=== PATIENT | male | born 1940 | race Caucasian/White ===

== ENCOUNTER 2020-05-31 11:59 | Outpatient (CLI) | payer MEDICARE, BC ==
[2020-05-31] MEDS ORDERED: BACI/NEOM/POLY B OINT PKT 1 UDPKT PACKET ONE (12:28)
== END 2020-05-31 23:59 | disposition home or self-care (01) ==
LOC: WOU 11:59
PROVIDERS: ATTEND Surgery
DX: I97.621 Postprocedural hematoma of a circulatory system organ or structure following other procedure (principal); T81.31XA Disruption of external operation (surgical) wound, not elsewhere classified, initial encounter; Z95.0 Presence of cardiac pacemaker; I49.9 Cardiac arrhythmia, unspecified
CPT/HCPCS: G0463

== ENCOUNTER 2021-02-06 11:00 | Inpatient (IN) | payer MEDICARE, BC ==
[~2021-02-06] VITALS: Ht 158.8 cm; Wt 62.1 kg
[2021-02-06] VITALS (9 sets, daily range): BP systolic 98–129; BP diastolic 48–68
--- NOTE | 2021-02-06 11:05 | NUR ---
[id number] FRM HOME, SYNCOPAL EPISODE. HYPOTENSIVE UPON EMS ARRIVAL BG 173 CLINICAL TECHNOLOGIST. PATIENT A/OX4, BREATHING EVEN AND UNLABORED, NO SOB NOTED, NO INJURY NOTED AT THIS TIME. PATIENT IS C/O LOWER BACK PAIN.ASSISTED TO ER BED 9. PLACED ON THE ETIOLOGIST.
--- NOTE | 2021-02-06 11:11 | NUR ---
MOVE SHEET SUBMITTED AND CALLED FOR TELE BED.
--- NOTE | 2021-02-06 11:16 | NUR ---
IV LINE ESTABLISHED, BLOOD DRAWN AND SENT TO LAB.
--- NOTE | 2021-02-06 11:19 | NUR ---
[place], CALLED STATING THAT PT HAD A TRANSCATHETER AORTIC VALVE REPLACEMENT AROUND 3 YEARS AGO.
[2021-02-06 11:29] LABS: BASOPHILS % (AUTO) 0.3 % (0.0-2.0); EOSINOPHILS % (AUTO) 5.4 % (0.0-6.0); HEMATOCRIT 25 % (39-51); HEMOGLOBIN 7.9 g/dL (13.5-17.5); LYMPHOCYTES # (AUTO) 2.4 K/uL (0.8-4.8); LYMPHOCYTES % (AUTO) 36.9 % (20.0-44.0); MEAN CORPUSCULAR HGB CONC 31 g/dl (31.0-36.0); MEAN CORPUSCULAR VOLUME 74 fL (80-96); MONOCYTES # (AUTO) 0.6 K/uL (0.1-1.30); MONOCYTES % (AUTO) 8.9 % (2.0-12.0); NEUTROPHILS # (AUTO) 3.2 K/uL (1.8-8.9); NEUTROPHILS % (AUTO) 48.5 % (43.0-81.0); PLATELET COUNT (AUTO) 202 K/uL (150-450); RED BLOOD CELL COUNT(AUTO) 3.41 MIL/uL (4.5-6.0); WHITE BLOOD COUNT (AUTO) 6.5 K/uL (4.3-11.0)
[2021-02-06] MEDS ORDERED: IV NS 0.9% 1,000 ML BAG IV ONE (11:30)
[2021-02-06 11:44] LABS: ALANINE AMINOTRANSFERASE 12 U/L (12-78); ALBUMIN 3.4 g/dL (3.4-5.0); ALKALINE PHOSPHATASE 70 U/L (46-116); ASPARTATE AMINOTRANSFERASE 18 U/L (15-37); BILIRUBIN,DIRECT 0.2 mg/dL (0.0-0.2); BILIRUBIN,TOTAL 0.5 mg/dL (0.2-1.0); CALCIUM, SERUM 8.5 mg/dL (8.5-10.1); CREATININE 1.8 mg/dL (0.6-1.3); GLUCOSE 124 mg/dL (74-106); POTASSIUM 4.4 mmol/L (3.5-5.1); SODIUM SERUM 140 mmol/L (136-145); TOTAL PROTEIN, SERUM 6.5 g/dL (6.4-8.2); UREA NITROGEN, BLOOD 36 mg/dL (7-18)
[2021-02-06 11:48] LABS: CARBON DIOXIDE 21 mmol/L (21-32); CHLORIDE 109 mmol/L (98-107)
[2021-02-06] MEDS ORDERED: ASPIRIN 325 MG TABLET PO ONE (12:00)
[2021-02-06] MEDS ORDERED: TRIA1TAB3 PO (12:06)
[2021-02-06] MEDS ORDERED: PROP10TA68 PO (12:06)
[2021-02-06] MEDS ORDERED: PRAV40TA3 PO (12:06)
[2021-02-06] MEDS ORDERED: AMLO2.5T4 PO (12:06)
[2021-02-06] MEDS ORDERED: LATA2.5D15 EACHEYE (12:06)
[2021-02-06] MEDS ORDERED: TIMO5DRO18 EACHEYE (12:06)
[2021-02-06] MEDS ORDERED: VALS80TA31 PO (12:06)
[2021-02-06] MEDS ORDERED: FAMO40TA7 PO (12:06)
[2021-02-06] MEDS ORDERED: ALLO300T2 PO (12:06)
[2021-02-06] MEDS ORDERED: CYAN100096 PO (12:06)
--- NOTE | 2021-02-06 12:14 | NUR ---
PATIENT AWAKE AND ALERT, ORIENTED X4, NO CHANGE IN LOC, NEUROCHECK DONE. VERBALLY RESPONSIVE, ABLE TO MOVE ALL EXTREMITIES WITH NO DIFFICULTY.
--- NOTE | 2021-02-06 12:14 | NUR ---
IMAGES SENT TO DR. BYRD.
--- NOTE | 2021-02-06 12:32 | NUR ---
DR. BYRD SPEAKING WITH DR. FARR.
--- NOTE | 2021-02-06 12:35 | NUR ---
[facility] CALLED CLINIC CHARGE NURSE PAGED.
--- NOTE | 2021-02-06 14:00 | NUR ---
PATIENT RESTING, IN NO DISTRESS NOTED. NEEDS ATTENDED. VSS.
[2021-02-06] MEDS ORDERED: ONDANSETRON HCL/PF 4 MG/2 ML VIAL ONE (14:01)
[2021-02-06] MEDS ORDERED: MORPHINE SULFATE INJ 4 MG/ML DISP.SYRIN ONE (14:01)
--- NOTE | 2021-02-06 14:13 | NUR ---
GOT BED ASSIGNMENT ICU BED 258
--- NOTE | 2021-02-06 14:37 | NUR ---
PT ARRIVED IN ICU FROM ER AT THIS TIME VIA GURNEY. PT WALKED WITH ASSISTANCE TO BED. PT APPEARS TO BE ALERT OX4, NO DEFICITS NOTED.
--- NOTE | 2021-02-06 14:38 | NUR ---
PATIENT A/OX4, BREATHING EVEN AND UNLABORED, NO SOB NOTED. PATIENT TRANSFERRED TO ICU ROOM 258 IN STABLE CONDITION.
[2021-02-06] MEDS ORDERED: Z GUARD REMEDY 2 OZ OINT TP PRN (15:00)
[2021-02-06] MEDS ORDERED: ONDANSETRON HCL/PF 4 MG/2 ML VIAL IVP PRN (15:00)
[2021-02-06] MEDS ORDERED: ZOLPIDEM TARTRATE 5 MG TABLET PO PRN (15:00)
[2021-02-06] MEDS ORDERED: ACETAMINOPHEN 325 MG TABLET PO PRN (15:00)
[2021-02-06] MEDS: TIMOLOL 0.5% SOLN OPHTH 5 ML BOTTLE EACHEYE SCH (18:00)
--- NOTE | 2021-02-06 18:09 | NUR ---
END OF SHIFT NOTE: PT REMAINS ALERT OX4, NO NEUROLOGICAL DEFICITS NOTED. CT BRAIN SCHEDULED FOR AM FOR RECHECK OF BLEED. PATIENT CHECKED ON HOURLY AND PRN BY NURSING STAFF.
--- NOTE | 2021-02-06 19:00 | NUR ---
RN NOTE REPORT RECEIVED FROM IGNACIO DUNCAN, PATIENT IN BED, AO X 4, IN NO S/SX OF ACUTE DISTRESS AT THIS TIME. BREATHING EVEN AND UNLABORED, SATURATION AT 100% ON ROOM AIR, V-PACED ON THE MONITOR, HR IS 64. NOTED IV SITE AT RAC 18G, AND LAC 18G, PATENT AND FLUSHING WELL, NO S/S OF INFECTION OR INFILTRATION. SAFETY MEASURES IMPLEMENTED. PATIENT BED ALARM IS ON. HEAD OF BED ELEVATED. BED IS LOCKED, IN LOWEST POSITION AND SIDE RAILS UP. CALL LIGHT WITHIN REACH OF THE PATIENT. WILL CONTINUE TO MONITOR AND REASSESS FOR ANY CHANGES.
[2021-02-06] MEDS: LATANOPROST EYE DROP 0.005% 2.5 ML BOTTLE EACHEYE SCH (21:02)
[2021-02-06 21:11] LABS: FERRITIN 11 ng/mL (8-388)
--- NOTE | 2021-02-06 21:20 | NUR ---
RN NOTE TELEPHONE CALL FROM PT'S , [place] HERNANDEZ, STATED PT HAD A PRIOR FALL AND WAS FOUND TO HAVE "BLEEDING IN THE BRAIN" IN THE HOSPITAL BUT MD DID NOT WANT TO OPERATE THEN. SAID SHE WANTS TO BE NOTIFIED OF ANY PLANNED PROCEDURE FOR THE PATIENT. PROVIDED HER CALL BACK NUMBER [phone]. WILL ENDORSE TO DAY SHIFT RN TO INFORM NEURO IN AM.
[2021-02-06 21:53] LABS: IRON, SERUM 18 ug/dl (50-175); TOTAL IRON BINDING CAPACITY 267 ug/dl (250-450)
--- NOTE | 2021-02-06 23:30 | NUR ---
RN NOTE PT REQUESTED TO SIT IN COMMODE TO TRY TO HAVE BOWEL MOVEMENT, STAYED FOR 5-10 MINUTES, BUT STILL NO BM.
[2021-02-07] VITALS (24 sets, daily range): BP systolic 93–130; BP diastolic 32–65
[2021-02-07 04:43] LABS: BASOPHILS % (AUTO) 0.3 % (0.0-2.0); EOSINOPHILS % (AUTO) 3.6 % (0.0-6.0); HEMATOCRIT 26 % (39-51); HEMOGLOBIN 8.1 g/dL (13.5-17.5); LYMPHOCYTES # (AUTO) 2.9 K/uL (0.8-4.8); MEAN CORPUSCULAR HGB CONC 31 g/dl (31.0-36.0); MEAN CORPUSCULAR VOLUME 74 fL (80-96); MONOCYTES # (AUTO) 0.6 K/uL (0.1-1.30); MONOCYTES % (AUTO) 8.6 % (2.0-12.0); NEUTROPHILS # (AUTO) 3.6 K/uL (1.8-8.9); NEUTROPHILS % (AUTO) 48.5 % (43.0-81.0); PLATELET COUNT (AUTO) 189 K/uL (150-450); RED BLOOD CELL COUNT(AUTO) 3.52 MIL/uL (4.5-6.0); WHITE BLOOD COUNT (AUTO) 7.3 K/uL (4.3-11.0)
[2021-02-07 04:58] LABS: IRON, SERUM 17 ug/dl (50-175); TOTAL IRON BINDING CAPACITY 266 ug/dl (250-450)
[2021-02-07 04:59] LABS: CHOLESTEROL 100 mg/dL (<200); HDL CHOLESTEROL 33 mg/dL (40-60); LDL 45 mg/dL (0-99); TRIGLYCERIDES 104 mg/dL (30-150)
[2021-02-07 05:05] LABS: ALANINE AMINOTRANSFERASE 15 U/L (12-78); ALBUMIN 3.4 g/dL (3.4-5.0); ALKALINE PHOSPHATASE 80 U/L (46-116); ASPARTATE AMINOTRANSFERASE 20 U/L (15-37); BILIRUBIN,TOTAL 0.7 mg/dL (0.2-1.0); CALCIUM, SERUM 8.8 mg/dL (8.5-10.1); CARBON DIOXIDE 21 mmol/L (21-32); CHLORIDE 109 mmol/L (98-107); CREATININE 1.7 mg/dL (0.6-1.3); GLUCOSE 83 mg/dL (74-106); MAGNESIUM 2.1 mg/dL (1.8-2.4); POTASSIUM 4.6 mmol/L (3.5-5.1); SODIUM SERUM 139 mmol/L (136-145); TOTAL PROTEIN, SERUM 6.6 g/dL (6.4-8.2); UREA NITROGEN, BLOOD 29 mg/dL (7-18)
--- NOTE | 2021-02-07 07:25 | NUR ---
RN NOTE PT REMAINS IN ROOM, NO SIGN OF ACUTE DISTRESS NOTED, SATURATION AT 99% ON ROOM AIR, AV PACING ON THE MONITOR. SCHEDULED FOR REPEAT CT OF HEAD AT 0900 TODAY, STILL NO BM, THUS UNABLE TO COLLECT SPECIMEN FOR FECAL OCCULT BLOOD. SAFETY MEASURES IN PLACE PER PROTOCOL. ENDORSED TO SHYAM DUNCAN FOR CONTINUATION OF CARE.
--- NOTE | 2021-02-07 08:00 | NUR ---
ICU/RN PT IS RESTING IN THE BED ON ROOM AIR.SAT O2-100%.V/S STABLE,AFEBRILE.NO PAIN REPORTED AT THIS TIME.IV-HL.PT USE URINAL ,SKIN INTACT .LABS REVIEW.MD AWARE. WAITING FOR CT OF THE HEAD.
[2021-02-07] MEDS: PANTOPRAZOLE 40 MG TABLET.DR PO SCH (08:28)
[2021-02-07] MEDS: ALLOPURINOL 100 MG TABLET PO SCH (08:29)
[2021-02-07] MEDS: CYANOCOBALAMIN 500 MCG TABLET PO SCH (08:29)
[2021-02-07] MEDS: TIMOLOL 0.5% SOLN OPHTH 5 ML BOTTLE EACHEYE SCH ×2 (08:30→16:40)
[2021-02-07] MEDS: IV NS 0.9% 1,000 ML IV SCH ×3 (08:32→18:48)
[2021-02-07] MEDS ORDERED: AMLODIPINE BESYLATE 2.5 MG TABLET PO SCH (09:00)
[2021-02-07] MEDS ORDERED: PROPRANOLOL HCL 10 MG TABLET PO SCH (09:00)
[2021-02-07] MEDS ORDERED: ATORVASTATIN 10 MG TABLET PO SCH (09:00)
[2021-02-07] MEDS ORDERED: VALSARTAN 80 MG TABLET PO SCH (09:00)
--- NOTE | 2021-02-07 09:00 | NUR ---
ICU/RN DUE MEDS ARE GIVEN ORDERED. PT EATS 75% FROM HIS MEAL TRAY.
--- NOTE | 2021-02-07 10:00 | NUR ---
ICU/RN CT OF THE HEAD DONE ORDERED.
[2021-02-07] MEDS ORDERED: SOD FERRIC GLUC 125 MG in IV NS 0.9% 100 ML IV SCH (14:00)
--- NOTE | 2021-02-07 19:30 | NUR ---
RN NOTES Received patient in the room sitting in the chair alert awake orientedx3. Breathing normal no SOB noted. Respiration even non labored. Denies any pain or discomfort. KATERINA midline intact NS is running at 200ml/hr. Skin intact warm and dry to touch. Safety measures in place, call light within reach. Will cont to monitor for josé luis.
[2021-02-07] MEDS: LATANOPROST EYE DROP 0.005% 2.5 ML BOTTLE EACHEYE SCH (21:13)
[2021-02-07 23:57] LABS: OCCULT BLOOD STOOL POSITIVE (NEGATIVE)
[2021-02-08] VITALS (14 sets, daily range): BP systolic 94–130; BP diastolic 35–75
[2021-02-08 04:33] LABS: BASOPHILS % (AUTO) 0.3 % (0.0-2.0); EOSINOPHILS % (AUTO) 3.5 % (0.0-6.0); HEMATOCRIT 24 % (39-51); HEMOGLOBIN 7.5 g/dL (13.5-17.5); LYMPHOCYTES # (AUTO) 2.5 K/uL (0.8-4.8); LYMPHOCYTES % (AUTO) 38.2 % (20.0-44.0); MEAN CORPUSCULAR HGB CONC 32 g/dl (31.0-36.0); MEAN CORPUSCULAR VOLUME 74 fL (80-96); MONOCYTES # (AUTO) 0.5 K/uL (0.1-1.30); MONOCYTES % (AUTO) 8.3 % (2.0-12.0); NEUTROPHILS # (AUTO) 3.2 K/uL (1.8-8.9); NEUTROPHILS % (AUTO) 49.7 % (43.0-81.0); PLATELET COUNT (AUTO) 189 K/uL (150-450); RED BLOOD CELL COUNT(AUTO) 3.18 MIL/uL (4.5-6.0); WHITE BLOOD COUNT (AUTO) 6.4 K/uL (4.3-11.0)
[2021-02-08 04:57] LABS: ALANINE AMINOTRANSFERASE 13 U/L (12-78); ALBUMIN 2.9 g/dL (3.4-5.0); ALKALINE PHOSPHATASE 67 U/L (46-116); ASPARTATE AMINOTRANSFERASE 19 U/L (15-37); BILIRUBIN,TOTAL 0.4 mg/dL (0.2-1.0); CALCIUM, SERUM 8.3 mg/dL (8.5-10.1); CARBON DIOXIDE 19 mmol/L (21-32); CHLORIDE 112 mmol/L (98-107); CREATININE 1.4 mg/dL (0.6-1.3); GLUCOSE 84 mg/dL (74-106); MAGNESIUM 1.8 mg/dL (1.8-2.4); PHOSPHORUS 2.7 mg/dL (2.5-4.9); POTASSIUM 4.3 mmol/L (3.5-5.1); SODIUM SERUM 140 mmol/L (136-145); UREA NITROGEN, BLOOD 21 mg/dL (7-18)
--- NOTE | 2021-02-08 07:11 | NUR ---
RN NOTES No changes noted during shift. No s/s of acute distress noted. Breathing normal no SOB noted. Routine medications were given. Kept clean dry and comfortable. IV'S intact no s/s of infiltration/no swelling noted. Denies any pain or discomfort. Safety measures in place, call light within reach. Will endorse to AM nurse for josé luis.
--- NOTE | 2021-02-08 07:30 | NUR ---
Patient received in bed awake. He is alert and oriented. No c/o pain or discomfort. Patient breathing even and unlabored on room air. No c/o dizziness. HOB kept elevated. Will continue to monitor. Call light with in reach.
[2021-02-08] MEDS: TIMOLOL 0.5% SOLN OPHTH 5 ML BOTTLE EACHEYE SCH (09:01)
[2021-02-08] MEDS: CYANOCOBALAMIN 500 MCG TABLET PO SCH (09:01)
[2021-02-08] MEDS: PANTOPRAZOLE 40 MG TABLET.DR PO SCH (09:02)
[2021-02-08] MEDS: ALLOPURINOL 100 MG TABLET PO SCH (09:02)
--- NOTE | 2021-02-08 11:00 | NUR ---
Orthostatic bp reading done and results sent and documented. MD Nye made aware. Per MD d/c meds have been finalized.
--- NOTE | 2021-02-08 11:15 | NUR ---
Patient discharged to home with daughter in a private car. Patient is alert and oriented. No c/o pain or discomfort. Patient educated regarding follow up with Dr Matthew WITT and also Dr Maninder STOVER on thursday. Patient ambulated with property underwriter around the hallway x2 with no c/o dizziness. All education provided.
== END 2021-02-08 12:00 | disposition home or self-care (01) | DRG 85 ==
LOC: ER 11:05 → ICU 14:22
PROVIDERS: ADMIT Nurse Practitioner Family
PROC: 05HB33Z Insertion of Infusion Device into Right Basilic Vein, Percutaneous Approach (ICD-10-PCS; principal; 2021-02-07)
DX: S06.6X1A Traumatic subarachnoid hemorrhage with loss of consciousness of 30 minutes or less, initial encounter (principal); I21.A1 Myocardial infarction type 2; N17.0 Acute kidney failure with tubular necrosis; W18.30XA Fall on same level, unspecified, initial encounter; Y92.000 Kitchen of unspecified non-institutional (private) residence as the place of occurrence of the external cause; I12.9 Hypertensive chronic kidney disease with stage 1 through stage 4 chronic kidney disease, or unspecified chronic kidney disease; N18.9 Chronic kidney disease, unspecified; Z95.2 Presence of prosthetic heart valve; Z98.890 Other specified postprocedural states; Z79.899 Other long term (current) drug therapy; Z87.891 Personal history of nicotine dependence; D50.9 Iron deficiency anemia, unspecified; E86.0 Dehydration; I70.0 Atherosclerosis of aorta; Z79.82 Long term (current) use of aspirin; Z87.820 Personal history of traumatic brain injury; Z95.0 Presence of cardiac pacemaker; G93.89 Other specified disorders of brain
CPT/HCPCS: 36415; 70450-TC; 71045-TC; 80048-TC; 80053-TC; 80061-TC; 80076-TC; 82272-TC; 82728-TC; 83540-TC; 83605-TC; 83735-TC; 83880; 84100-TC; 84484-TC; 84550-TC; 85025-TC; 85730-TC; 87040-TC; 87081-TC; 93307-TC; 97112-TC; 97116-TC; 97530-TC; C9803; G0378; J2270; J2405; J2916; J7030